=== PATIENT | female | born 1990 | race Asian ===

== ENCOUNTER 2018-01-01 16:44 | Emergency (ER) | payer OTHER ==
[2018-01-01] MEDS ORDERED: IBUPROFEN 600 MG TAB PO ONE (18:15)
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
[2018-01-01 18:29] VITALS: BP 112/70
== END 2018-01-01 18:29 | disposition home or self-care (01) ==
DX: S80.11XA Contusion of right lower leg, initial encounter (principal); V19.60XA Unspecified pedal cyclist injured in collision with unspecified motor vehicles in traffic accident, initial encounter; Y92.481 Parking lot as the place of occurrence of the external cause; Y93.55 Activity, bike riding; Y99.9 Unspecified external cause status